=== PATIENT | female | born 1995 ===

== ENCOUNTER 2018-03-26 17:26 | Emergency (ER) | payer MEDICAID ==
--- NOTE | 2018-03-26 19:55 | OBHP ---
Datetime: 03/26/2018 18:45 IP Adm Impression: , intrauterine ; No Active Labor; Intact Membranes IP Chief Complaint Other: Cramping IP Admit Plan: Admit to unit; Observation/Evaluation Admit Comment, IP Provider: 22 yo female G1 with an IUP at 31.2 weeks Presented with c/o of pelvic cramping since earlier today and then spotting x 2 this PM Drinks little water and c/o's of chronic constipation Will continue monitoring to R/O Labor Order OB US Pelvic Type - PN: Adequate Extremities - PN: Normal Abdomen - PN: Normal Back - PN: Normal Breast - PN: Not Done Lungs - PN: Normal Heart - PN: Normal Thyroid - PN: Normal Neurologic - PN: Normal HEENT - PN: Normal General - PN: Normal Presentation-Admit: Vertex FHR - Baseline A Provider: 150 Membranes, Provider: Intact Contraction Comments Provider: Irregular and mild Gestation - Est Wks by US: 31 09/11 Pool Provider: Negative IP Hx Assessment: No Records available EGA AdmitDate IP: 31.2 Vital Signs Provider: Reviewed; Within Normal Limits IP Chief Complaint: Vaginal bleeding; Maternal discomfort; evaluation; Other NICHD Variability Prov Fetus A: Moderate 6-25bpm NICHD Accel Fetus A IP Provider: 10X10 NICHD Decel Fetus A IP Provider: None Dilatation, Provider: 0 Effacement, Provider: 25 Station, Provider: -3 Genitourinary Exam: Normal DTRs - PN: Normal
[2018-03-26] MEDS ORDERED: Lactated Ringer's 1,000 ML IV ONE (20:00)
[2018-03-26 20:01] LABS: SQUAMOUS EPITHIAL 2 /hpf (0-5); URINE BILIRUBIN NEGATIVE (NEGATIVE); URINE BLOOD NEGATIVE (NEGATIVE); URINE CLARITY Clear (Clear); URINE COLOR Yellow (YELLOW); URINE GLUCOSE (UA) NORMAL (Normal); URINE LEUKOCYTE ESTERASE NEG Leu/uL (Negative); URINE PROTEIN NEGATIVE (NEGATIVE); URINE UROBILINOGEN NORMAL mg/dL (0.2-1.0)
[2018-03-26 20:27] LABS: BASO % 0.2 % (0.0-2.0); EOS # 0.4 K/uL (0.0-0.7); EOS % 3.3 % (0.0-4.0); LYMPH # 1.9 K/uL (1.0-4.3); LYMPH % 17.3 % (20.0-40.0); MEAN CELL VOLUME 88.4 fL (81.0-99.0); MEAN CORPUSCULAR HEMOGLOBIN 29.8 pg (27.0-31.0); MEAN CORPUSCULAR HGB CONC 33.7 g/dL (33.0-37.0); MEAN PLATELET VOLUME 8.4 fL (7.2-11.7); MONO # 0.7 K/uL (0.0-0.8); MONO % 6.4 % (0.0-10.0); NEUT # 8.1 K/uL (1.8-7.0); NEUT % 72.8 % (50.0-75.0); NRBC % 0.1 % (0.0-2.0); RBC 3.69 Mil/uL (3.80-5.20); RED CELL DISTRIBUTION WIDTH 13.7 % (11.5-14.5); WHITE BLOOD COUNT 11.1 K/uL (4.8-10.8)
[2018-03-26 20:40] LABS: ALB/GLOB RATIO 1.3 (1.0-2.1); ALBUMIN 3.7 g/dL (3.5-5.0); ALT/SGPT 29 U/L (9-52); AST/SGOT 14 U/L (14-36); BLOOD UREA NITROGEN 7 mg/dL (7-17); CALCIUM 9.2 mg/dl (8.6-10.4); GFR NON-AFRICAN AMERICAN > 60
--- NOTE | 2018-03-27 08:00 | US ---
PROCEDURE: HISTORY: LMP COMPARISON: None TECHNIQUE: Transabdominal scanning of the maternal pelvis and a 2nd/ 3rd trimester with image documentation FINDINGS: Fetus: Single intrauterine gestation heart rate: Present at 146 beats per minute presentation: Vertex Placenta: Posteriorwithout previa or abruption Amniotic fluid : Normal appearing: JAH 14.3 cm anatomy: Limited due to late gestation. biometrics: Gestational age by ultrasound: 31 weeks 6 days 2 weeks 2 days Estimated weight: 1793 g 269 g Maternal factors: Uterus: Unremarkable. No myometrial masses Cervix:3.3 cm length trace fluid in the endocervical canal Free fluid: None Biophysical profile: Breathin Gross body movements: 2 Limb tone: 2 Amniotic Fluid: 2 Total biophysical profile: 03/12 IMPRESSION: Single intrauterine gestation with normal cardiac activity. presentation - cephalic. No previa . Biophysical profile 03/12 Concordant results (preliminary interpretation) provided by [facility].
[2018-03-27 15:13] VITALS: BP 112/58; PULSE 98; RESP 20
== END 2018-03-26 23:30 | disposition home or self-care (01) ==
LOC: C.EROB 17:26
DX: O26.893 Other specified pregnancy related conditions, third trimester (principal); R10.2 Pelvic and perineal pain; Z3A.31 31 weeks gestation of pregnancy
CPT/HCPCS: 76815; 76818; 80053; 81001; 85025; 86850; 86900; 96360; 96361; 96372; 99283; J3105; J7120